=== PATIENT | male | born 1965 | race Two or more races ===

== ENCOUNTER → 2024-08-01 | Day surgery (SDC) | payer OTHER ==
[2024-07-26 14:40] LABS: INR 1.17; PROTHROMBIN TIME 12.6 SECONDS (9.0-11.5)
[~2024-08-01] MED LIST: LOSARTAN POTASS50 MG; SYNTHROID137 MCG; [UNRECOGNIZED DRUG - REMARK]
== END | disposition home or self-care (01) ==
LOC: ADM 07-26 14:15 → CIR.AMB 10:11
PROVIDERS: ATTEND Internal Medicine
DX: C16.0 Malignant neoplasm of cardia (principal); C22.0 Liver cell carcinoma; R93.5 Abnormal findings on diagnostic imaging of other abdominal regions, including retroperitoneum